=== PATIENT | male | born 1970 | race Two or more races ===

== ENCOUNTER → 2016-09-17 | Outpatient (CLI) | payer OTHER ==
[2016-09-17 07:46] LABS: BASO % 0.6 % (0.0-1.0); EOS # 0.2 K/mm3 (0.0-0.50); EOS % 4.1 % (0.0-3.0); LARGE UNSTAINED CELL # 0.2 K/mm3 (0.0-0.4); LARGE UNSTAINED CELL % 2.7 % (0.0-4.0); LYMPH # 2.4 K/mm3 (1.5-4.5); LYMPH % 39.8 % (24.0-44.0); MEAN CORPUSCULAR HEMOGLOBIN 30.4 pg (27.0-33.0); MEAN CORPUSCULAR HGB CONC 34.4 g/dl (32.0-36.5); MEAN CORPUSCULAR VOLUME 88.2 fl (80.0-96.0); MONO # 0.4 K/mm3 (0.0-0.8); MONO % 6.3 % (0.0-5.0); NEUTROPHILS # 2.8 K/mm3 (1.8-7.7); NEUTROPHILS % 46.7 % (36.0-66.0); PLATELET COUNT, AUTOMATED 261 k/mm3 (150-450); RED CELL DISTRIBUTION WIDTH 11.9 % (11.5-14.5); WHITE BLOOD COUNT 6.1 K/mm3 (4.0-10.0)
[2016-09-17 08:13] LABS: ALBUMIN/GLOBULIN RATIO 1.14 (1.00-1.93); ALKALINE PHOSPHATASE 79 U/L (45-117); ALT/SGPT 50 U/L (12-78); ANION GAP 7 MEQ/L (8-16); AST/SGOT 23 U/L (15-37); BILIRUBIN,TOTAL 0.7 MG/DL (0.2-1.0); BLOOD UREA NITROGEN 15 MG/DL (7-18); CALCIUM LEVEL 8.5 MG/DL (8.5-10.1); CARBON DIOXIDE LEVEL 28 MEQ/L (21-32); CHLORIDE LEVEL 105 MEQ/L (98-107); CHOLESTEROL LEVEL 217 MG/DL (<200); CREATININE FOR GFR 1.06 MG/DL (0.70-1.30); GLOMERULAR FILTRATION RATE > 60.0 (>60); GLUCOSE, FASTING 143 MG/DL (70-105); POTASSIUM SERUM 4.3 MEQ/L (3.5-5.1); SODIUM LEVEL 140 MEQ/L (136-145); TOTAL PROTEIN 7.5 GM/DL (6.4-8.2); TRIGLYCERIDES LEVEL 200 MG/DL (<150)
== END ==
LOC: M LAB 06:59
PROVIDERS: ATTEND Nurse Practitioner Family
DX: Z00.00 Encounter for general adult medical examination without abnormal findings (principal); Z83.3 Family history of diabetes mellitus; Z13.220 Encounter for screening for lipoid disorders

== ENCOUNTER → 2017-01-07 | Outpatient (CLI) | payer OTHER ==
[2017-01-07 07:51] LABS: ANION GAP 4 MEQ/L (8-16); BLOOD UREA NITROGEN 11 MG/DL (7-18); CALCIUM LEVEL 8.9 MG/DL (8.5-10.1); CARBON DIOXIDE LEVEL 27 MEQ/L (21-32); CHLORIDE LEVEL 107 MEQ/L (98-107); CREATININE FOR GFR 0.97 MG/DL (0.70-1.30); GLOMERULAR FILTRATION RATE > 60.0 (>60); GLUCOSE, FASTING 119 MG/DL (70-105); POTASSIUM SERUM 4.3 MEQ/L (3.5-5.1); SODIUM LEVEL 138 MEQ/L (136-145)
== END ==
LOC: M LAB 06:53
PROVIDERS: ATTEND Nurse Practitioner Family
DX: R73.01 Impaired fasting glucose (principal)

== ENCOUNTER → 2017-08-27 | Outpatient (CLI) | payer OTHER ==
[2017-08-27 08:36] LABS: ALBUMIN 4.1 GM/DL (3.2-5.2); ALBUMIN/GLOBULIN RATIO 1.17 (1.00-1.93); ALKALINE PHOSPHATASE 87 U/L (45-117); ALT/SGPT 38 U/L (12-78); ANION GAP 2 MEQ/L (8-16); AST/SGOT 19 U/L (7-37); BILIRUBIN,TOTAL 0.6 MG/DL (0.2-1.0); BLOOD UREA NITROGEN 14 MG/DL (7-18); CALCIUM LEVEL 9.3 MG/DL (8.5-10.1); CARBON DIOXIDE LEVEL 31 MEQ/L (21-32); CHLORIDE LEVEL 106 MEQ/L (98-107); GLOMERULAR FILTRATION RATE > 60.0 (>60); GLUCOSE, FASTING 118 MG/DL (70-100); POTASSIUM SERUM 5.1 MEQ/L (3.5-5.1); SODIUM LEVEL 139 MEQ/L (136-145); TOTAL PROTEIN 7.6 GM/DL (6.4-8.2)
[2017-08-27 09:11] LABS: ESTIMATED AVERAGE GLUCOSE 137 MG/DL (60-110); HEMOGLOBIN A1c 6.4 %
== END ==
LOC: M LAB 07:09
DX: R73.03 Prediabetes (principal)
CPT/HCPCS: 80053

== ENCOUNTER → 2017-10-22 | Outpatient (CLI) | payer OTHER ==
[2017-10-22 08:31] LABS: ALBUMIN 4.5 GM/DL (3.2-5.2); ALBUMIN/GLOBULIN RATIO 1.25 (1.00-1.93); ALKALINE PHOSPHATASE 76 U/L (45-117); ALT/SGPT 37 U/L (12-78); ANION GAP 5 MEQ/L (8-16); AST/SGOT 21 U/L (7-37); BILIRUBIN,TOTAL 0.6 MG/DL (0.2-1.0); BLOOD UREA NITROGEN 19 MG/DL (7-18); CALCIUM LEVEL 8.9 MG/DL (8.5-10.1); CARBON DIOXIDE LEVEL 30 MEQ/L (21-32); CHLORIDE LEVEL 105 MEQ/L (98-107); CHOLESTEROL LEVEL 225 MG/DL (<200); CREATININE FOR GFR 1.11 MG/DL (0.70-1.30); GLOMERULAR FILTRATION RATE > 60.0 (>60); GLUCOSE, FASTING 110 MG/DL (70-100); HDL CHOLESTEROL 45 MG/DL (>40); LDL CHOLESTEROL 155.8 MG/DL (<100); NON-HDL-C 180 MG/DL; POTASSIUM SERUM 4.7 MEQ/L (3.5-5.1); SODIUM LEVEL 140 MEQ/L (136-145); TOTAL PROTEIN 8.1 GM/DL (6.4-8.2); TRIGLYCERIDES LEVEL 121 MG/DL (<150)
[2017-10-22 08:40] LABS: MALB URINE SIEMENS 18.4 MG/L
== END ==
LOC: M LAB 06:52
DX: I10 Essential (primary) hypertension (principal)

== ENCOUNTER → 2018-11-05 | Outpatient (REF) | payer OTHER | LOC: M SFHCPLAZ 08:04 | PROVIDERS: ATTEND Nurse Practitioner Family | DX: Z53.9 Procedure and treatment not carried out, unspecified reason (principal); Z00.00 Encounter for general adult medical examination without abnormal findings; R73.01 Impaired fasting glucose; I10 Essential (primary) hypertension; E78.5 Hyperlipidemia, unspecified ==

== ENCOUNTER → 2020-07-26 | Outpatient (CLI) | payer SELFPAY | LOC: M LABSMTC 12:54 | PROVIDERS: ATTEND Pediatrics | DX: Z11.59 Encounter for screening for other viral diseases (principal) ==

== ENCOUNTER → 2021-08-20 | Outpatient (REF) | payer OTHER ==
[2021-08-20 10:52] LABS: SEMEN APPEARANCE OPAQUE (OPAQUE); SEMEN VISCOSITY LIQUID (LIQUID); SEMEN VOLUME 2.6 ml (2.0-5.0)
[2021-08-20 10:53] LABS: WBC CONCENTRATION <=1 M/ml (<=1 M/ml)
== END ==
LOC: M LAB REF 10:17
PROVIDERS: ATTEND Preventive Medicine Undersea and Hyperbaric Medicine
DX: Z98.52 Vasectomy status (principal)

== ENCOUNTER 2023-01-12 17:22 | Inpatient (IN) | payer OTHER ==
[~2023-01-12] VITALS: Ht 175.3 cm; Wt 82.3 kg
[2023-01-12] MEDS ORDERED: LOSA50TA28 PO (17:34)
[2023-01-12] MEDS ORDERED: ISOVUE-370 76% 100ML VIAL As Ordered ONE (17:54)
[2023-01-12 18:00] VITALS: BP 174/94; TEMP 97.7; O2SAT 99
[2023-01-12 18:10] LABS: BASO # 0.1 10^3/uL (0.0-0.2); BASO % 0.6 % (0.0-1.0); EOS # 0.3 10^3/uL (0.0-0.5); EOS % 3.3 % (0.0-3.0); HEMATOCRIT 44.3 % (42.0-52.0); HEMOGLOBIN 14.9 g/dl (13.5-17.5); MEAN CORPUSCULAR HEMOGLOBIN 30.3 pg (27.0-33.0); MEAN CORPUSCULAR HGB CONC 33.6 g/dl (32.0-36.5); MONO # 0.8 10^3/uL (0.0-0.8); MONO % 8.3 % (2.0-8.0); NEUTROPHILS % 54.6 % (36.0-66.0); PLATELET COUNT, AUTOMATED 282 10^3/uL (150-450); RED BLOOD COUNT 4.92 10^6/uL (4.30-6.10); WHITE BLOOD COUNT 9.1 10^3/uL (4.0-10.0)
[2023-01-12 18:39] LABS: CK-MB VALUE MASS < 1.0 NG/ML (<3.6)
[2023-01-12 18:40] LABS: CPK CREATINE PHOSPHOKINASE 98 U/L (46-171); MB/CK RELATIVE INDEX 1.02 (< OR =4)
[2023-01-12 18:48] LABS: RSV AMPLIFICATION NEGATIVE (NEGATIVE)
[2023-01-12 19:00] VITALS: BP 145/83
[2023-01-12] MEDS ORDERED: CLOPIDOGREL 75 MG TAB PO ONE (19:00)
[2023-01-12] MEDS ORDERED: HOME MED LIST COMPLETE! XX SCH (19:30)
[2023-01-12] MEDS ORDERED: DEXTROSE 50% 50ML SYRINGE IV PRN (19:30)
[2023-01-12] MEDS ORDERED: GLUCAGON INJ 1MG VIAL SC PRN (19:30)
[2023-01-12] MEDS ORDERED: GLUCOSE 4GM CHEW TABLET PO PRN (19:30)
[2023-01-12 21:46] VITALS: BP 176/86; TEMP 97.5; O2SAT 98
[2023-01-12] MEDS: INSULIN LISPRO (NovoLOG) PER UNIT SC SCH (22:15)
[2023-01-13] VITALS (18 sets, daily range): BP systolic 116–176; BP diastolic 70–97; TEMP 96.9–98.6; O2SAT 95–100
[2023-01-13 05:14] LABS: ALBUMIN 3.6 G/DL (3.2-5.2); ALKALINE PHOSPHATASE 91 U/L (46-116); ALT/SGPT 25 U/L (7.0-40); AST/SGOT 10 U/L (<34); BILIRUBIN,TOTAL 0.7 MG/DL (0.3-1.2); BLOOD UREA NITROGEN 13 MG/DL (9-23); CALCIUM LEVEL 8.3 MG/DL (8.5-10.1); CARBON DIOXIDE LEVEL 25 MMOL/L (20-31); CHLORIDE LEVEL 106 MMOL/L (98-107); CHOLESTEROL LEVEL 182 MG/DL (<200); CHOLESTEROL RISK RATIO 4.81 (<5); CREATININE FOR GFR 0.73 MG/DL (0.70-1.30); GLOMERULAR FILTRATION RATE > 60.0 (>56); GLUCOSE, FASTING 277 MG/DL (60-100); HDL CHOLESTEROL 37.8 MG/DL (>40); LDL CHOLESTEROL 114.2 MG/DL (<100); NON-HDL-C 144.2 MG/DL; POTASSIUM SERUM 3.9 MMOL/L (3.5-5.1); SODIUM LEVEL 140 MMOL/L (136-145); TOTAL PROTEIN 6.1 G/DL (5.7-8.2); TRIGLYCERIDES LEVEL 150 MG/DL (<150)
[2023-01-13] MEDS: HEPARIN SOD (PORCINE) 5000UNITS/ML 1ML VIAL/SYRINGE SC SCH ×3 (06:13→21:55)
[2023-01-13] MEDS: CLOPIDOGREL 75 MG TAB PO SCH (08:06)
[2023-01-13] MEDS: INSULIN LISPRO (NovoLOG) PER UNIT SC SCH ×4 (08:06→21:00)
[2023-01-13] MEDS ORDERED: ASPIRIN 81MG CHEW TABLET PO SCH (09:00)
[2023-01-13] MEDS ORDERED: NS 1,000 ML IV ONE (12:05)
[2023-01-13] MEDS ORDERED: NS 1,000 ML IV SCH (12:10)
[2023-01-13 12:20] LABS: C REACTIVE PROTEIN QUANTITATIV < 0.40 MG/DL (<1.0)
[2023-01-13 12:21] LABS: RHEUMATOID FACTOR QUANT < 3.5 IU/ML (<14)
[2023-01-13] MEDS: NS 1,000 ML IV SCH ×2 (15:18→21:55)
[2023-01-13] MEDS: ATORVASTATIN 20 MG TAB PO SCH (21:54)
[2023-01-14] VITALS (94 sets, daily range): BP systolic 128–171; BP diastolic 71–105; TEMP 97.7–98.3; O2SAT 86–99
[2023-01-14] MEDS: PHENYLEPHRINE HCL INJ 50 MG in D5W 495 ML IV SCH (01:35)
[2023-01-14] MEDS: NS 1,000 ML IV SCH ×4 (04:55→22:10)
[2023-01-14 05:51] LABS: HEMATOCRIT 39.8 % (42.0-52.0); HEMOGLOBIN 13.8 g/dl (13.5-17.5); MEAN CORPUSCULAR HEMOGLOBIN 30.6 pg (27.0-33.0); MEAN CORPUSCULAR HGB CONC 34.7 g/dl (32.0-36.5); MEAN CORPUSCULAR VOLUME 88.2 fl (80.0-96.0); PLATELET COUNT, AUTOMATED 265 10^3/uL (150-450); RED BLOOD COUNT 4.51 10^6/uL (4.30-6.10); WHITE BLOOD COUNT 8.7 10^3/uL (4.0-10.0)
[2023-01-14 06:15] LABS: BLOOD UREA NITROGEN 8 MG/DL (9-23); CALCIUM LEVEL 7.9 MG/DL (8.5-10.1); CARBON DIOXIDE LEVEL 24 MMOL/L (20-31); CHLORIDE LEVEL 110 MMOL/L (98-107); CREATININE FOR GFR 0.74 MG/DL (0.70-1.30); GLOMERULAR FILTRATION RATE > 60.0 (>56); GLUCOSE, FASTING 231 MG/DL (60-100); MAGNESIUM LEVEL 1.7 MG/DL (1.8-2.4); PHOSPHORUS LEVEL 2.8 MG/DL (2.5-4.9); POTASSIUM SERUM 3.9 MMOL/L (3.5-5.1); SODIUM LEVEL 140 MMOL/L (136-145)
[2023-01-14] MEDS: HEPARIN SOD (PORCINE) 5000UNITS/ML 1ML VIAL/SYRINGE SC SCH ×3 (06:24→21:34)
[2023-01-14] MEDS ORDERED: MAG SULF 1GM/100ML (MAG RUN) 1 GM in IV 1 EA IV ONE (08:00)
[2023-01-14] MEDS: CLOPIDOGREL 75 MG TAB PO SCH (08:45)
[2023-01-14] MEDS: INSULIN LISPRO (NovoLOG) PER UNIT SC SCH ×4 (08:46→21:00)
[2023-01-14] MEDS: LEVEMIR (INSULIN DETEMIR) 1 UNITS/0.01ML SC SCH (08:47)
[2023-01-14] MEDS ORDERED: ASPIRIN 81MG ENTERIC TABLET PO SCH (09:00)
[2023-01-14] MEDS: ATORVASTATIN 20 MG TAB PO SCH (20:15)
[2023-01-15] VITALS (63 sets, daily range): BP systolic 126–184; BP diastolic 65–109; TEMP 97.4–98.7; O2SAT 95–98
[2023-01-15] MEDS: PHENYLEPHRINE HCL INJ 50 MG in D5W 495 ML IV SCH (02:05)
[2023-01-15] MEDS: NS 1,000 ML IV SCH ×2 (03:48→16:21)
[2023-01-15 04:26] LABS: BASO # 0.1 10^3/uL (0.0-0.2); BASO % 0.6 % (0.0-1.0); EOS # 0.3 10^3/uL (0.0-0.5); EOS % 3.2 % (0.0-3.0); HEMOGLOBIN 12.9 g/dl (13.5-17.5); LYMPH # 3.3 10^3/uL (1.5-5.0); LYMPH % 36.6 % (24.0-44.0); MEAN CORPUSCULAR HEMOGLOBIN 30.3 pg (27.0-33.0); MEAN CORPUSCULAR HGB CONC 33.9 g/dl (32.0-36.5); MEAN CORPUSCULAR VOLUME 89.2 fl (80.0-96.0); MONO # 0.8 10^3/uL (0.0-0.8); MONO % 8.5 % (2.0-8.0); NEUTROPHILS # 4.6 10^3/uL (1.5-8.5); PLATELET COUNT, AUTOMATED 241 10^3/uL (150-450); RED BLOOD COUNT 4.26 10^6/uL (4.30-6.10)
[2023-01-15 05:13] LABS: CK-MB VALUE MASS < 1.0 NG/ML (<3.6)
[2023-01-15 05:20] LABS: ALKALINE PHOSPHATASE 69 U/L (46-116); ALT/SGPT 33 U/L (7.0-40); AST/SGOT 24 U/L (<34); BILIRUBIN,TOTAL 0.7 MG/DL (0.3-1.2); BLOOD UREA NITROGEN 9 MG/DL (9-23); CALCIUM LEVEL 7.5 MG/DL (8.5-10.1); CARBON DIOXIDE LEVEL 22 MMOL/L (20-31); CHLORIDE LEVEL 110 MMOL/L (98-107); CPK CREATINE PHOSPHOKINASE 60 U/L (46-171); CREATININE FOR GFR 0.73 MG/DL (0.70-1.30); GLOMERULAR FILTRATION RATE > 60.0 (>56); GLUCOSE, FASTING 188 MG/DL (60-100); MAGNESIUM LEVEL 1.8 MG/DL (1.8-2.4); MB/CK RELATIVE INDEX 1.66 (< OR =4); PHOSPHORUS LEVEL 3.3 MG/DL (2.5-4.9); POTASSIUM SERUM 3.6 MMOL/L (3.5-5.1); SODIUM LEVEL 141 MMOL/L (136-145); TOTAL PROTEIN 5.4 G/DL (5.7-8.2)
[2023-01-15] MEDS: HEPARIN SOD (PORCINE) 5000UNITS/ML 1ML VIAL/SYRINGE SC SCH ×3 (06:08→21:41)
[2023-01-15] MEDS: LEVEMIR (INSULIN DETEMIR) 1 UNITS/0.01ML SC SCH (08:06)
[2023-01-15] MEDS: CLOPIDOGREL 75 MG TAB PO SCH (08:06)
[2023-01-15] MEDS: INSULIN LISPRO (NovoLOG) PER UNIT SC SCH ×4 (08:07→20:26)
[2023-01-15] MEDS: ATORVASTATIN 20 MG TAB PO SCH (20:27)
[2023-01-16] VITALS (29 sets, daily range): BP systolic 117–177; BP diastolic 57–99; TEMP 97.1–98.3; O2SAT 95–98
[2023-01-16] MEDS: PHENYLEPHRINE HCL INJ 50 MG in D5W 495 ML IV SCH (02:39)
[2023-01-16 04:32] LABS: BASO % 0.5 % (0.0-1.0); EOS # 0.3 10^3/uL (0.0-0.5); EOS % 3.1 % (0.0-3.0); HEMATOCRIT 37.1 % (42.0-52.0); HEMOGLOBIN 12.9 g/dl (13.5-17.5); LYMPH # 3.3 10^3/uL (1.5-5.0); LYMPH % 37.6 % (24.0-44.0); MEAN CORPUSCULAR HEMOGLOBIN 30.6 pg (27.0-33.0); MEAN CORPUSCULAR HGB CONC 34.8 g/dl (32.0-36.5); MEAN CORPUSCULAR VOLUME 88.1 fl (80.0-96.0); MONO # 0.9 10^3/uL (0.0-0.8); MONO % 10.3 % (2.0-8.0); NEUTROPHILS # 4.3 10^3/uL (1.5-8.5); NEUTROPHILS % 48.4 % (36.0-66.0); PLATELET COUNT, AUTOMATED 253 10^3/uL (150-450); RED BLOOD COUNT 4.21 10^6/uL (4.30-6.10); WHITE BLOOD COUNT 8.8 10^3/uL (4.0-10.0)
[2023-01-16 04:52] LABS: ALKALINE PHOSPHATASE 83 U/L (46-116); ALT/SGPT 50 U/L (7.0-40); AST/SGOT 36 U/L (<34); BILIRUBIN,TOTAL 0.8 MG/DL (0.3-1.2); BLOOD UREA NITROGEN 8 MG/DL (9-23); CALCIUM LEVEL 8.7 MG/DL (8.5-10.1); CARBON DIOXIDE LEVEL 23 MMOL/L (20-31); CHLORIDE LEVEL 110 MMOL/L (98-107); GLOMERULAR FILTRATION RATE > 60.0 (>56); GLUCOSE, FASTING 157 MG/DL (60-100); MAGNESIUM LEVEL 1.7 MG/DL (1.8-2.4); POTASSIUM SERUM 3.8 MMOL/L (3.5-5.1); SODIUM LEVEL 140 MMOL/L (136-145); TOTAL PROTEIN 5.6 G/DL (5.7-8.2)
[2023-01-16] MEDS: NS 1,000 ML IV SCH (05:20)
[2023-01-16] MEDS: HEPARIN SOD (PORCINE) 5000UNITS/ML 1ML VIAL/SYRINGE SC SCH ×3 (05:20→21:34)
[2023-01-16] MEDS ORDERED: MAG SULF 1GM/100ML (MAG RUN) 1 GM in IV 1 EA IV ONE (06:00)
[2023-01-16] MEDS: CLOPIDOGREL 75 MG TAB PO SCH (08:06)
[2023-01-16] MEDS: INSULIN LISPRO (NovoLOG) PER UNIT SC SCH ×4 (08:07→20:48)
[2023-01-16] MEDS: LEVEMIR (INSULIN DETEMIR) 1 UNITS/0.01ML SC SCH (08:08)
[2023-01-16] MEDS ORDERED: LEVEMIR (INSULIN DETEMIR) 1 UNITS/0.01ML SC SCH (09:00)
[2023-01-16] MEDS: ATORVASTATIN 20 MG TAB PO SCH (20:28)
[2023-01-16] MEDS ORDERED: LOSARTAN 25 MG TAB PO SCH (21:00)
[2023-01-17] VITALS: BP 123/78; TEMP 98.3; O2SAT 98
[2023-01-17 04:00] VITALS: BP 126/61; TEMP 98.2; O2SAT 96
[2023-01-17 04:56] LABS: BLOOD UREA NITROGEN 8 MG/DL (9-23); CALCIUM LEVEL 8.8 MG/DL (8.5-10.1); CARBON DIOXIDE LEVEL 28 MMOL/L (20-31); CHLORIDE LEVEL 108 MMOL/L (98-107); CREATININE FOR GFR 0.82 MG/DL (0.70-1.30); GLOMERULAR FILTRATION RATE > 60.0 (>56); GLUCOSE, FASTING 119 MG/DL (60-100); MAGNESIUM LEVEL 1.9 MG/DL (1.8-2.4); POTASSIUM SERUM 3.6 MMOL/L (3.5-5.1); SODIUM LEVEL 143 MMOL/L (136-145)
[2023-01-17] MEDS: HEPARIN SOD (PORCINE) 5000UNITS/ML 1ML VIAL/SYRINGE SC SCH ×3 (06:05→21:18)
[2023-01-17 08:00] VITALS: BP 144/77; TEMP 97.9; O2SAT 97
[2023-01-17] MEDS: LEVEMIR (INSULIN DETEMIR) 1 UNITS/0.01ML SC SCH (08:37)
[2023-01-17] MEDS: INSULIN LISPRO (NovoLOG) PER UNIT SC SCH ×4 (08:37→21:00)
[2023-01-17] MEDS: CLOPIDOGREL 75 MG TAB PO SCH (08:37)
[2023-01-17 09:26] LABS: DRVV SCREEN 35.5 SEC
[2023-01-17 13:30] VITALS: BP 138/80; TEMP 98.6; O2SAT 97
[2023-01-17 20:00] VITALS: BP 135/78; TEMP 98.8; O2SAT 97
[2023-01-17] MEDS: ATORVASTATIN 20 MG TAB PO SCH (21:18)
[2023-01-18 02:00] VITALS: BP 118/62; TEMP 98.6; O2SAT 96
[2023-01-18] MEDS: HEPARIN SOD (PORCINE) 5000UNITS/ML 1ML VIAL/SYRINGE SC SCH ×3 (05:19→22:37)
[2023-01-18 05:24] VITALS: BP 141/78; TEMP 97.9; O2SAT 97
[2023-01-18] MEDS: INSULIN LISPRO (NovoLOG) PER UNIT SC SCH ×4 (09:32→21:00)
[2023-01-18] MEDS: CLOPIDOGREL 75 MG TAB PO SCH (09:32)
[2023-01-18] MEDS: LEVEMIR (INSULIN DETEMIR) 1 UNITS/0.01ML SC SCH (09:33)
[2023-01-18 10:00] VITALS: BP 120/78; TEMP 98.5; O2SAT 97
[2023-01-18 14:00] VITALS: BP 127/68; TEMP 99; O2SAT 98
[2023-01-18 18:00] VITALS: BP 140/83; TEMP 99.1; O2SAT 99
[2023-01-18 21:03] VITALS: BP 139/80; TEMP 98.8; O2SAT 98
[2023-01-18] MEDS: ATORVASTATIN 20 MG TAB PO SCH (22:35)
[2023-01-19 02:00] VITALS: BP 108/62; TEMP 98.4; O2SAT 99
[2023-01-19] MEDS: HEPARIN SOD (PORCINE) 5000UNITS/ML 1ML VIAL/SYRINGE SC SCH ×3 (05:50→22:30)
[2023-01-19 06:00] VITALS: BP 121/75; TEMP 97.9; O2SAT 98
[2023-01-19] MEDS: INSULIN LISPRO (NovoLOG) PER UNIT SC SCH ×3 (07:30→18:34)
[2023-01-19] MEDS: CLOPIDOGREL 75 MG TAB PO SCH (09:35)
[2023-01-19] MEDS: LEVEMIR (INSULIN DETEMIR) 1 UNITS/0.01ML SC SCH (09:36)
[2023-01-19 10:00] VITALS: BP 122/76; TEMP 99; O2SAT 98
[2023-01-19 14:00] VITALS: BP 142/73; TEMP 98.8; O2SAT 96
[2023-01-19 18:00] VITALS: BP 138/70; TEMP 98.9; O2SAT 98
[2023-01-19 20:12] VITALS: BP 135/81; TEMP 98.6; O2SAT 98
[2023-01-19] MEDS: ATORVASTATIN 20 MG TAB PO SCH (22:29)
[2023-01-20 01:55] VITALS: BP 110/66; TEMP 98.8; O2SAT 99
[2023-01-20 05:42] VITALS: BP 110/65; TEMP 98.1; O2SAT 95
[2023-01-20] MEDS: HEPARIN SOD (PORCINE) 5000UNITS/ML 1ML VIAL/SYRINGE SC SCH ×3 (05:57→21:00)
[2023-01-20] MEDS: LEVEMIR (INSULIN DETEMIR) 1 UNITS/0.01ML SC SCH (08:01)
[2023-01-20] MEDS: INSULIN LISPRO (NovoLOG) PER UNIT SC SCH ×2 (08:02→12:02)
[2023-01-20] MEDS: CLOPIDOGREL 75 MG TAB PO SCH (08:02)
[2023-01-20 13:07] LABS: ANCA-ATYPICAL <1:20 titer (Neg:<1:20); ANTI THROMBIN 3 ANTIGEN IMMUNO 96 % (72-124); ANTI THROMBIN 3 FUNCT ACTIVITY 121 % (75-135); ANTINUCLEAR ANTIBODIES DIRECT Negative (Negative); CARDIOLIPIN IGA ANTIBODY <9 APL U/mL (0-11); CARDIOLIPIN IGG ANTIBODY <9 GPL U/mL (0-14); CARDIOLIPIN IGM ANTIBODY <9 MPL U/mL (0-12); CYTOPLASMIC NEUTROP AB ANCA-C <1:20 titer (Neg:<1:20); F8 ACTIVITY FOR F8 PANEL 125 % (56-140); F8 ACTIVITY vWB FOR F8 PANEL 121 % (50-200); F8 ANTIGEN FOR F8 PANEL 158 % (50-200); PERINUCLEAR AB ANCA-P <1:20 titer (Neg:<1:20); PROTEIN C ANTIGEN 131 % (60-150); PROTEIN S ANTIGEN FREE 112 % (61-136); PROTEIN S ANTIGEN TOTAL 126 % (60-150); SJOGREN'S ANTI SS-A <0.2 AI (0.0-0.9); SJOGREN'S ANTI SS-B <0.2 AI (0.0-0.9)
[2023-01-20 14:00] VITALS: BP 123/70; TEMP 98.8; O2SAT 96
[2023-01-20] MEDS: ATORVASTATIN 20 MG TAB PO SCH (20:58)
[2023-01-20 21:00] VITALS: BP 131/72; TEMP 98.6; O2SAT 98
[2023-01-21] MEDS: HEPARIN SOD (PORCINE) 5000UNITS/ML 1ML VIAL/SYRINGE SC SCH ×3 (05:19→22:11)
[2023-01-21 06:00] VITALS: BP 120/71; TEMP 98.4; O2SAT 97
[2023-01-21] MEDS: LEVEMIR (INSULIN DETEMIR) 1 UNITS/0.01ML SC SCH (09:30)
[2023-01-21] MEDS: CLOPIDOGREL 75 MG TAB PO SCH (09:30)
[2023-01-21 14:00] VITALS: BP 137/76; TEMP 98.6; O2SAT 96
[2023-01-21] MEDS: ATORVASTATIN 20 MG TAB PO SCH (20:10)
[2023-01-21] MEDS: glipiZIDE *2.5MG* 1/2 TABLET PO SCH (20:11)
[2023-01-21 20:40] VITALS: BP 134/76; TEMP 98.4; O2SAT 98
[2023-01-22] MEDS: HEPARIN SOD (PORCINE) 5000UNITS/ML 1ML VIAL/SYRINGE SC SCH (05:32)
[2023-01-22 05:43] VITALS: BP 126/72; TEMP 98.6; O2SAT 98
[2023-01-22] MEDS: CLOPIDOGREL 75 MG TAB PO SCH (07:41)
[2023-01-22] MEDS: LEVEMIR (INSULIN DETEMIR) 1 UNITS/0.01ML SC SCH (07:41)
[2023-01-22] MEDS: glipiZIDE *2.5MG* 1/2 TABLET PO SCH (07:41)
[2023-01-22] MEDS ORDERED: INSUDET SC (08:28)
[2023-01-22] MEDS ORDERED: ATOR1TAB21 PO (08:28)
[2023-01-22] MEDS ORDERED: GLIP5TAB8 PO (08:28)
[2023-01-22] MEDS ORDERED: CLOP75TA2 PO (08:28)
[2023-01-23] MEDS ORDERED: LEVEMIR (INSULIN DETEMIR) 1 UNITS/0.01ML SC SCH (09:00)
== END 2023-01-22 11:06 | DRG 45 ==
LOC: M ED 17:22 → M ED INP 19:26 → M PCU 21:44 → M ICU 01-13 20:05 → M MSPAV 01-17 13:23
PROVIDERS: ADMIT Internal Medicine; ATTEND Internal Medicine Nephrology
DX: I63.9 Cerebral infarction, unspecified (principal); E11.65 Type 2 diabetes mellitus with hyperglycemia; I10 Essential (primary) hypertension; D68.2 Hereditary deficiency of other clotting factors; E78.5 Hyperlipidemia, unspecified; G47.33 Obstructive sleep apnea (adult) (pediatric); I69.322 Dysarthria following cerebral infarction; I69.391 Dysphagia following cerebral infarction; I69.351 Hemiplegia and hemiparesis following cerebral infarction affecting right dominant side; Z79.82 Long term (current) use of aspirin; Z91.030 Bee allergy status; Z79.4 Long term (current) use of insulin; Z79.899 Other long term (current) drug therapy; Z87.891 Personal history of nicotine dependence

== ENCOUNTER 2023-01-22 11:15 | Inpatient (IN) | payer OTHER ==
[~2023-01-22] VITALS: Ht 175.3 cm; Wt 80.0 kg
[2023-01-22 11:15] VITALS: BP 128/75; TEMP 98.1; O2SAT 100
[~2023-01-22 11:15] MED LIST: ATOR1TAB21 PO; CLOP75TA2 PO; GLIP5TAB8 PO; INSUDET SC; LOSA50TA28 PO
[2023-01-22 14:00] VITALS: BP 134/68; TEMP 97.8; O2SAT 99
[2023-01-22] MEDS ORDERED: GLUCOSE 4GM CHEW TABLET PO PRN (16:05)
[2023-01-22] MEDS ORDERED: ACETAMINOPHEN TAB 650MG DOSE (2X325MG) PO PRN (16:05)
[2023-01-22] MEDS ORDERED: DEXTROSE 50% 50ML SYRINGE IV PRN (16:05)
[2023-01-22] MEDS ORDERED: BISACODYL 10MG SUPP PR PRN (16:05)
[2023-01-22] MEDS ORDERED: GLUCAGON INJ 1MG VIAL SC PRN (16:05)
[2023-01-22] MEDS: glipiZIDE *2.5MG* 1/2 TABLET PO SCH (17:29)
[2023-01-22] MEDS ORDERED: INSULIN LISPRO (NovoLOG) PER UNIT SC SCH ×2 (17:30→21:00)
[2023-01-22 20:45] VITALS: BP 123/73; TEMP 97.8; O2SAT 96
[2023-01-22] MEDS: REMEDY PHYTOPLEX Z-GUARD PASTE 113GM TUBE (FROM STOREROOM PRODUCT) TOP SCH (21:00)
[2023-01-22] MEDS: DOCUSATE SODIUM 100MG CAPSULE PO SCH (21:00)
[2023-01-22] MEDS: SENNA 8.6 MG TAB (SENOKOT) PO SCH (21:00)
[2023-01-22] MEDS: ATORVASTATIN 20 MG TAB PO SCH (21:27)
[2023-01-22] MEDS: HEPARIN SOD (PORCINE) 5000UNITS/ML 1ML VIAL/SYRINGE SC SCH (21:28)
[2023-01-23] MEDS: HEPARIN SOD (PORCINE) 5000UNITS/ML 1ML VIAL/SYRINGE SC SCH ×3 (05:23→21:45)
[2023-01-23 06:00] VITALS: BP 123/77; TEMP 97.6; O2SAT 96
[2023-01-23 06:07] LABS: BASO % 0.7 % (0.0-1.0); EOS # 0.2 10^3/uL (0.0-0.5); EOS % 3.8 % (0.0-3.0); HEMATOCRIT 39.8 % (42.0-52.0); HEMOGLOBIN 13.5 g/dl (13.5-17.5); LYMPH % 35.1 % (24.0-44.0); MEAN CORPUSCULAR HEMOGLOBIN 30.6 pg (27.0-33.0); MEAN CORPUSCULAR HGB CONC 33.9 g/dl (32.0-36.5); MEAN CORPUSCULAR VOLUME 90.2 fl (80.0-96.0); MONO # 0.6 10^3/uL (0.0-0.8); MONO % 10.5 % (2.0-8.0); NEUTROPHILS # 2.9 10^3/uL (1.5-8.5); NEUTROPHILS % 49.7 % (36.0-66.0); PLATELET COUNT, AUTOMATED 235 10^3/uL (150-450); RED BLOOD COUNT 4.41 10^6/uL (4.30-6.10); WHITE BLOOD COUNT 5.8 10^3/uL (4.0-10.0)
[2023-01-23 06:36] LABS: ALBUMIN 3.3 G/DL (3.2-5.2); ALKALINE PHOSPHATASE 69 U/L (46-116); ALT/SGPT 78 U/L (7.0-40); AST/SGOT 39 U/L (<34); BILIRUBIN,TOTAL 0.5 MG/DL (0.3-1.2); BLOOD UREA NITROGEN 14 MG/DL (9-23); CALCIUM LEVEL 9.4 MG/DL (8.5-10.1); CARBON DIOXIDE LEVEL 25 MMOL/L (20-31); CHLORIDE LEVEL 108 MMOL/L (98-107); CREATININE FOR GFR 0.85 MG/DL (0.70-1.30); GLOMERULAR FILTRATION RATE > 60.0 (>56); GLUCOSE, FASTING 120 MG/DL (60-100); POTASSIUM SERUM 4.5 MMOL/L (3.5-5.1); SODIUM LEVEL 141 MMOL/L (136-145); TOTAL PROTEIN 6.2 G/DL (5.7-8.2)
[2023-01-23] MEDS: PANTOPRAZOLE 40MG TAB (PROTONIX) PO SCH (08:43)
[2023-01-23] MEDS: glipiZIDE *2.5MG* 1/2 TABLET PO SCH ×2 (08:43→18:01)
[2023-01-23] MEDS: CLOPIDOGREL 75 MG TAB PO SCH (08:43)
[2023-01-23] MEDS: REMEDY PHYTOPLEX Z-GUARD PASTE 113GM TUBE (FROM STOREROOM PRODUCT) TOP SCH ×3 (08:44→21:00)
[2023-01-23] MEDS: DOCUSATE SODIUM 100MG CAPSULE PO SCH ×2 (08:44→21:00)
[2023-01-23] MEDS ORDERED: LEVEMIR (INSULIN DETEMIR) 1 UNITS/0.01ML SC SCH (09:00)
[2023-01-23 20:00] VITALS: BP 137/76; TEMP 98.6; O2SAT 98
[2023-01-23] MEDS: SENNA 8.6 MG TAB (SENOKOT) PO SCH (21:00)
[2023-01-23] MEDS: ATORVASTATIN 20 MG TAB PO SCH (21:44)
[2023-01-24] MEDS: HEPARIN SOD (PORCINE) 5000UNITS/ML 1ML VIAL/SYRINGE SC SCH ×3 (05:44→21:31)
[2023-01-24 05:56] LABS: BASO % 0.7 % (0.0-1.0); EOS # 0.2 10^3/uL (0.0-0.5); EOS % 4.3 % (0.0-3.0); HEMATOCRIT 39.7 % (42.0-52.0); HEMOGLOBIN 13.4 g/dl (13.5-17.5); LYMPH # 1.9 10^3/uL (1.5-5.0); LYMPH % 33.5 % (24.0-44.0); MEAN CORPUSCULAR HEMOGLOBIN 30.9 pg (27.0-33.0); MEAN CORPUSCULAR HGB CONC 33.8 g/dl (32.0-36.5); MEAN CORPUSCULAR VOLUME 91.7 fl (80.0-96.0); MONO # 0.7 10^3/uL (0.0-0.8); MONO % 11.7 % (2.0-8.0); NEUTROPHILS # 2.8 10^3/uL (1.5-8.5); NEUTROPHILS % 49.4 % (36.0-66.0); PLATELET COUNT, AUTOMATED 237 10^3/uL (150-450); RED BLOOD COUNT 4.33 10^6/uL (4.30-6.10); WHITE BLOOD COUNT 5.6 10^3/uL (4.0-10.0)
[2023-01-24 06:00] VITALS: BP 121/77; TEMP 99; O2SAT 97
[2023-01-24 06:19] LABS: BLOOD UREA NITROGEN 13 MG/DL (9-23); CALCIUM LEVEL 8.3 MG/DL (8.5-10.1); CARBON DIOXIDE LEVEL 26 MMOL/L (20-31); CHLORIDE LEVEL 109 MMOL/L (98-107); CREATININE FOR GFR 0.79 MG/DL (0.70-1.30); GLOMERULAR FILTRATION RATE > 60.0 (>56); GLUCOSE, FASTING 115 MG/DL (60-100); POTASSIUM SERUM 4.2 MMOL/L (3.5-5.1); SODIUM LEVEL 143 MMOL/L (136-145)
[2023-01-24] MEDS: DOCUSATE SODIUM 100MG CAPSULE PO SCH ×2 (08:11→21:00)
[2023-01-24] MEDS: glipiZIDE *2.5MG* 1/2 TABLET PO SCH ×2 (08:11→16:55)
[2023-01-24] MEDS: CLOPIDOGREL 75 MG TAB PO SCH (08:11)
[2023-01-24] MEDS: PANTOPRAZOLE 40MG TAB (PROTONIX) PO SCH (08:11)
[2023-01-24] MEDS: ESCITALOPRAM OXALATE 5MG TABLET (LEXAPRO) PO SCH (08:11)
[2023-01-24] MEDS: REMEDY PHYTOPLEX Z-GUARD PASTE 113GM TUBE (FROM STOREROOM PRODUCT) TOP SCH ×3 (08:12→21:00)
[2023-01-24 14:00] VITALS: BP 134/63; TEMP 97.7; O2SAT 98
[2023-01-24 20:00] VITALS: BP 151/72; TEMP 97.8; O2SAT 97
[2023-01-24] MEDS: SENNA 8.6 MG TAB (SENOKOT) PO SCH (21:00)
[2023-01-24] MEDS: ATORVASTATIN 20 MG TAB PO SCH (21:30)
[2023-01-25] MEDS: HEPARIN SOD (PORCINE) 5000UNITS/ML 1ML VIAL/SYRINGE SC SCH ×3 (05:48→21:13)
[2023-01-25 06:00] VITALS: BP 128/76; TEMP 97.7; O2SAT 97
[2023-01-25] MEDS: REMEDY PHYTOPLEX Z-GUARD PASTE 113GM TUBE (FROM STOREROOM PRODUCT) TOP SCH ×3 (08:36→21:00)
[2023-01-25] MEDS: CLOPIDOGREL 75 MG TAB PO SCH (08:36)
[2023-01-25] MEDS: glipiZIDE *2.5MG* 1/2 TABLET PO SCH ×2 (08:36→17:35)
[2023-01-25] MEDS: ESCITALOPRAM OXALATE 5MG TABLET (LEXAPRO) PO SCH (08:36)
[2023-01-25] MEDS: PANTOPRAZOLE 40MG TAB (PROTONIX) PO SCH (08:36)
[2023-01-25] MEDS: DOCUSATE SODIUM 100MG CAPSULE PO SCH ×2 (08:36→21:00)
[2023-01-25 14:00] VITALS: BP 126/66; TEMP 97.7; O2SAT 97
[2023-01-25] MEDS: SENNA 8.6 MG TAB (SENOKOT) PO SCH (21:00)
[2023-01-25 21:04] VITALS: BP 127/69; TEMP 98.5; O2SAT 95
[2023-01-25] MEDS: ATORVASTATIN 20 MG TAB PO SCH (21:13)
[2023-01-26 05:16] VITALS: BP 130/78; TEMP 98.3; O2SAT 96
[2023-01-26] MEDS: HEPARIN SOD (PORCINE) 5000UNITS/ML 1ML VIAL/SYRINGE SC SCH ×3 (05:19→21:40)
[2023-01-26] MEDS: DOCUSATE SODIUM 100MG CAPSULE PO SCH ×2 (09:00→21:00)
[2023-01-26] MEDS: REMEDY PHYTOPLEX Z-GUARD PASTE 113GM TUBE (FROM STOREROOM PRODUCT) TOP SCH ×3 (09:00→21:00)
[2023-01-26] MEDS: CLOPIDOGREL 75 MG TAB PO SCH (09:14)
[2023-01-26] MEDS: PANTOPRAZOLE 40MG TAB (PROTONIX) PO SCH (09:14)
[2023-01-26] MEDS: glipiZIDE *2.5MG* 1/2 TABLET PO SCH ×2 (09:14→17:52)
[2023-01-26] MEDS: ESCITALOPRAM OXALATE 5MG TABLET (LEXAPRO) PO SCH (09:15)
[2023-01-26 14:00] VITALS: BP 150/72; TEMP 98.6; O2SAT 99
[2023-01-26 19:43] VITALS: BP 142/67; TEMP 98; O2SAT 94
[2023-01-26] MEDS: SENNA 8.6 MG TAB (SENOKOT) PO SCH (21:00)
[2023-01-26] MEDS: ATORVASTATIN 20 MG TAB PO SCH (21:41)
[2023-01-27] MEDS: HEPARIN SOD (PORCINE) 5000UNITS/ML 1ML VIAL/SYRINGE SC SCH ×3 (05:40→20:43)
[2023-01-27 05:56] VITALS: BP 147/82; TEMP 97.5; O2SAT 97
[2023-01-27] MEDS: PANTOPRAZOLE 40MG TAB (PROTONIX) PO SCH (08:53)
[2023-01-27] MEDS: ESCITALOPRAM OXALATE 5MG TABLET (LEXAPRO) PO SCH (08:53)
[2023-01-27] MEDS: CLOPIDOGREL 75 MG TAB PO SCH (08:53)
[2023-01-27] MEDS: glipiZIDE *2.5MG* 1/2 TABLET PO SCH ×2 (08:53→17:18)
[2023-01-27] MEDS: REMEDY PHYTOPLEX Z-GUARD PASTE 113GM TUBE (FROM STOREROOM PRODUCT) TOP SCH ×3 (08:54→21:00)
[2023-01-27] MEDS: DOCUSATE SODIUM 100MG CAPSULE PO SCH ×2 (08:54→21:00)
[2023-01-27 09:41] LABS: BASO # 0.1 10^3/uL (0.0-0.2); BASO % 0.8 % (0.0-1.0); EOS # 0.2 10^3/uL (0.0-0.5); EOS % 3.3 % (0.0-3.0); HEMATOCRIT 44.5 % (42.0-52.0); HEMOGLOBIN 14.6 g/dl (13.5-17.5); LYMPH # 1.7 10^3/uL (1.5-5.0); LYMPH % 28.9 % (24.0-44.0); MEAN CORPUSCULAR HEMOGLOBIN 30.5 pg (27.0-33.0); MEAN CORPUSCULAR HGB CONC 32.8 g/dl (32.0-36.5); MEAN CORPUSCULAR VOLUME 93.1 fl (80.0-96.0); MONO # 0.4 10^3/uL (0.0-0.8); MONO % 7.4 % (2.0-8.0); NEUTROPHILS # 3.6 10^3/uL (1.5-8.5); NEUTROPHILS % 59.4 % (36.0-66.0); PLATELET COUNT, AUTOMATED 282 10^3/uL (150-450); RED BLOOD COUNT 4.78 10^6/uL (4.30-6.10)
[2023-01-27 10:27] LABS: BLOOD UREA NITROGEN 11 MG/DL (9-23); CALCIUM LEVEL 9.2 MG/DL (8.5-10.1); CARBON DIOXIDE LEVEL 28 MMOL/L (20-31); CHLORIDE LEVEL 104 MMOL/L (98-107); CREATININE FOR GFR 0.87 MG/DL (0.70-1.30); GLOMERULAR FILTRATION RATE > 60.0 (>56); GLUCOSE, FASTING 143 MG/DL (60-100); POTASSIUM SERUM 3.9 MMOL/L (3.5-5.1); SODIUM LEVEL 139 MMOL/L (136-145)
[2023-01-27] MEDS: amLODIPine 5 MG TAB PO SCH (10:55)
[2023-01-27 14:00] VITALS: BP 137/68; TEMP 97.8; O2SAT 98
[2023-01-27 20:00] VITALS: BP 150/87; TEMP 98.2; O2SAT 96
[2023-01-27] MEDS: ATORVASTATIN 20 MG TAB PO SCH (20:44)
[2023-01-27] MEDS: SENNA 8.6 MG TAB (SENOKOT) PO SCH (21:00)
[2023-01-28] MEDS: HEPARIN SOD (PORCINE) 5000UNITS/ML 1ML VIAL/SYRINGE SC SCH ×3 (05:31→20:38)
[2023-01-28 06:00] VITALS: BP 143/81; TEMP 97.5; O2SAT 99
[2023-01-28] MEDS: ESCITALOPRAM OXALATE 5MG TABLET (LEXAPRO) PO SCH (08:42)
[2023-01-28] MEDS: glipiZIDE *2.5MG* 1/2 TABLET PO SCH ×2 (08:42→17:16)
[2023-01-28] MEDS: amLODIPine 5 MG TAB PO SCH ×2 (08:43→20:39)
[2023-01-28] MEDS: CLOPIDOGREL 75 MG TAB PO SCH (08:43)
[2023-01-28] MEDS: PANTOPRAZOLE 40MG TAB (PROTONIX) PO SCH (08:43)
[2023-01-28] MEDS: REMEDY PHYTOPLEX Z-GUARD PASTE 113GM TUBE (FROM STOREROOM PRODUCT) TOP SCH ×3 (08:43→21:00)
[2023-01-28] MEDS: DOCUSATE SODIUM 100MG CAPSULE PO SCH ×2 (08:43→21:00)
[2023-01-28 14:00] VITALS: BP 152/82; TEMP 97.5; O2SAT 98
[2023-01-28 20:00] VITALS: BP 136/72; TEMP 98; O2SAT 97
[2023-01-28] MEDS: ATORVASTATIN 20 MG TAB PO SCH (20:39)
[2023-01-28] MEDS: SENNA 8.6 MG TAB (SENOKOT) PO SCH (21:00)
[2023-01-29] MEDS: HEPARIN SOD (PORCINE) 5000UNITS/ML 1ML VIAL/SYRINGE SC SCH ×3 (05:23→21:23)
[2023-01-29 06:00] VITALS: BP 128/70; TEMP 97.7; O2SAT 99
[2023-01-29 06:19] LABS: BASO # 0.1 10^3/uL (0.0-0.2); BASO % 0.9 % (0.0-1.0); EOS # 0.3 10^3/uL (0.0-0.5); EOS % 3.7 % (0.0-3.0); HEMATOCRIT 43.6 % (42.0-52.0); HEMOGLOBIN 14.8 g/dl (13.5-17.5); LYMPH % 30.1 % (24.0-44.0); MEAN CORPUSCULAR HEMOGLOBIN 30.8 pg (27.0-33.0); MEAN CORPUSCULAR HGB CONC 33.9 g/dl (32.0-36.5); MEAN CORPUSCULAR VOLUME 90.8 fl (80.0-96.0); MONO # 0.6 10^3/uL (0.0-0.8); MONO % 9.2 % (2.0-8.0); NEUTROPHILS # 3.8 10^3/uL (1.5-8.5); PLATELET COUNT, AUTOMATED 280 10^3/uL (150-450); WHITE BLOOD COUNT 6.7 10^3/uL (4.0-10.0)
[2023-01-29 06:50] LABS: BLOOD UREA NITROGEN 11 MG/DL (9-23); CALCIUM LEVEL 9.1 MG/DL (8.5-10.1); CARBON DIOXIDE LEVEL 28 MMOL/L (20-31); CHLORIDE LEVEL 107 MMOL/L (98-107); CREATININE FOR GFR 0.81 MG/DL (0.70-1.30); GLOMERULAR FILTRATION RATE > 60.0 (>56); GLUCOSE, FASTING 147 MG/DL (60-100); POTASSIUM SERUM 4.2 MMOL/L (3.5-5.1); SODIUM LEVEL 141 MMOL/L (136-145)
[2023-01-29] MEDS: ESCITALOPRAM OXALATE 5MG TABLET (LEXAPRO) PO SCH (08:18)
[2023-01-29] MEDS: DOCUSATE SODIUM 100MG CAPSULE PO SCH ×2 (08:18→21:00)
[2023-01-29] MEDS: PANTOPRAZOLE 40MG TAB (PROTONIX) PO SCH (08:18)
[2023-01-29] MEDS: REMEDY PHYTOPLEX Z-GUARD PASTE 113GM TUBE (FROM STOREROOM PRODUCT) TOP SCH ×3 (08:18→21:00)
[2023-01-29] MEDS: CLOPIDOGREL 75 MG TAB PO SCH (08:18)
[2023-01-29] MEDS: glipiZIDE *2.5MG* 1/2 TABLET PO SCH ×2 (08:18→17:20)
[2023-01-29] MEDS: amLODIPine 5 MG TAB PO SCH ×2 (08:20→21:26)
[2023-01-29 14:00] VITALS: BP 130/80; TEMP 97.5; O2SAT 97
[2023-01-29 20:00] VITALS: BP 152/84; TEMP 98.2; O2SAT 99
[2023-01-29] MEDS: SENNA 8.6 MG TAB (SENOKOT) PO SCH (21:00)
[2023-01-29] MEDS: ATORVASTATIN 20 MG TAB PO SCH (21:24)
[2023-01-30 05:30] VITALS: BP 144/81; TEMP 98; O2SAT 97
[2023-01-30] MEDS: HEPARIN SOD (PORCINE) 5000UNITS/ML 1ML VIAL/SYRINGE SC SCH ×3 (06:04→21:49)
[2023-01-30] MEDS: REMEDY PHYTOPLEX Z-GUARD PASTE 113GM TUBE (FROM STOREROOM PRODUCT) TOP SCH ×3 (09:00→21:00)
[2023-01-30] MEDS: DOCUSATE SODIUM 100MG CAPSULE PO SCH ×2 (09:30→21:49)
[2023-01-30] MEDS: PANTOPRAZOLE 40MG TAB (PROTONIX) PO SCH (09:30)
[2023-01-30] MEDS: ESCITALOPRAM OXALATE 5MG TABLET (LEXAPRO) PO SCH (09:30)
[2023-01-30] MEDS: glipiZIDE *2.5MG* 1/2 TABLET PO SCH ×2 (09:30→17:13)
[2023-01-30] MEDS: CLOPIDOGREL 75 MG TAB PO SCH (09:30)
[2023-01-30] MEDS: amLODIPine 5 MG TAB PO SCH ×2 (09:31→21:49)
[2023-01-30] MEDS ORDERED: AMLO1TAB24 PO (09:40)
[2023-01-30] MEDS ORDERED: COZA1TAB PO (09:40)
[2023-01-30] MEDS ORDERED: CLOP75TA2 PO (09:40)
[2023-01-30] MEDS ORDERED: ATOR1TAB21 PO (09:40)
[2023-01-30] MEDS ORDERED: LEXA5TAB13 PO (09:40)
[2023-01-30] MEDS ORDERED: GLIP5TAB8 PO (09:40)
[2023-01-30 14:00] VITALS: BP 133/76; TEMP 97.9; O2SAT 99
[2023-01-30 20:00] VITALS: BP 159/81; TEMP 96.9; O2SAT 97
[2023-01-30] MEDS ORDERED: LOSARTAN 25 MG TAB PO SCH (21:00)
[2023-01-30] MEDS: ATORVASTATIN 20 MG TAB PO SCH (21:49)
[2023-01-30] MEDS: SENNA 8.6 MG TAB (SENOKOT) PO SCH (21:49)
[2023-01-31] MEDS: HEPARIN SOD (PORCINE) 5000UNITS/ML 1ML VIAL/SYRINGE SC SCH (05:41)
[2023-01-31 06:00] VITALS: BP 136/75; TEMP 98.2; O2SAT 98
[2023-01-31] MEDS: REMEDY PHYTOPLEX Z-GUARD PASTE 113GM TUBE (FROM STOREROOM PRODUCT) TOP SCH (09:00)
[2023-01-31] MEDS: DOCUSATE SODIUM 100MG CAPSULE PO SCH (09:00)
[2023-01-31] MEDS: glipiZIDE *2.5MG* 1/2 TABLET PO SCH (09:10)
[2023-01-31] MEDS: ESCITALOPRAM OXALATE 5MG TABLET (LEXAPRO) PO SCH (09:10)
[2023-01-31 09:11] VITALS: BP 136/75
[2023-01-31] MEDS: PANTOPRAZOLE 40MG TAB (PROTONIX) PO SCH (09:11)
[2023-01-31] MEDS: amLODIPine 5 MG TAB PO SCH (09:11)
[2023-01-31] MEDS: CLOPIDOGREL 75 MG TAB PO SCH (09:11)
== END 2023-01-31 11:00 | disposition home or self-care (01) | DRG 45 ==
LOC: M PM&R 11:15
PROVIDERS: ADMIT Internal Medicine; ATTEND Physical Medicine & Rehabilitation
DX: I63.9 Cerebral infarction, unspecified (principal); I69.322 Dysarthria following cerebral infarction; I69.391 Dysphagia following cerebral infarction; R13.10 Dysphagia, unspecified; I69.351 Hemiplegia and hemiparesis following cerebral infarction affecting right dominant side; R53.1 Weakness; I69.318 Other symptoms and signs involving cognitive functions following cerebral infarction; I10 Essential (primary) hypertension; E11.9 Type 2 diabetes mellitus without complications; G47.33 Obstructive sleep apnea (adult) (pediatric); E78.5 Hyperlipidemia, unspecified; Z74.09 Other reduced mobility; Z74.1 Need for assistance with personal care; Z79.01 Long term (current) use of anticoagulants; Z79.4 Long term (current) use of insulin; Z79.84 Long term (current) use of oral hypoglycemic drugs; Z79.899 Other long term (current) drug therapy; Z88.6 Allergy status to analgesic agent; Z91.030 Bee allergy status; Z87.891 Personal history of nicotine dependence

== ENCOUNTER → 2023-09-09 | Outpatient (CLI) | payer OTHER ==
[~2023-09-09] MED LIST changes: +AMLO1TAB24 PO; +GLIP5TAB17 PO; -GLIP5TAB8 PO; +LEXA5TAB13 PO; +LOSA-527 PO
[2023-09-09 08:07] LABS: CREATININE, URINE 89.2 MG/DL; PSA SCREENING 0.25 NG/ML (< 4.00)
[2023-09-09 08:08] LABS: ALKALINE PHOSPHATASE 92 U/L (46-116); ALT/SGPT 27 U/L (7.0-40); AST/SGOT 15 U/L (<34); BILIRUBIN,TOTAL 0.5 MG/DL (0.3-1.2); BLOOD UREA NITROGEN 16 MG/DL (9-23); CALCIUM LEVEL 9.1 MG/DL (8.5-10.1); CARBON DIOXIDE LEVEL 30 MMOL/L (20-31); CHLORIDE LEVEL 107 MMOL/L (98-107); CHOLESTEROL LEVEL 141 MG/DL (<200); CHOLESTEROL RISK RATIO 3.67 (<5); CREATININE FOR GFR 0.87 MG/DL (0.70-1.30); GLOMERULAR FILTRATION RATE > 60.0 (>56); GLUCOSE, FASTING 160 MG/DL (60-100); HDL CHOLESTEROL 38.4 MG/DL (>40); LDL CHOLESTEROL 84.2 MG/DL (<100); MAU/CREAT RATIO 7.8 MCG/MG (0.0-30.0); NON-HDL-C 102.6 MG/DL; POTASSIUM SERUM 4.9 MMOL/L (3.5-5.1); SODIUM LEVEL 141 MMOL/L (136-145); TOTAL PROTEIN 7.4 G/DL (5.7-8.2); TRIGLYCERIDES LEVEL 92 MG/DL (<150)
[2023-09-09 08:23] LABS: HEMOGLOBIN A1c 7.2 % (4.0-6.0)
[2023-09-09 08:43] LABS: HEPATITIS C VIRUS ABY INDEX < 0.02 INDEX (<0.8)
== END ==
LOC: M LAB 06:59
PROVIDERS: ATTEND Family Medicine
DX: E78.5 Hyperlipidemia, unspecified (principal); Z12.5 Encounter for screening for malignant neoplasm of prostate; E11.9 Type 2 diabetes mellitus without complications; I10 Essential (primary) hypertension; R79.89 Other specified abnormal findings of blood chemistry; Z11.9 Encounter for screening for infectious and parasitic diseases, unspecified
CPT/HCPCS: 36415; 80053; 80061; 82043; 83036; 86803; G0103

== ENCOUNTER → 2024-02-02 | Day surgery (SDC) | payer OTHER ==
[~2024-02-02] VITALS: Ht 175.3 cm; Wt 78.9 kg
[~2024-02-02] MED LIST changes: +ATOR40TA75 PO; +CLOP75TA99 PO; +JARD1TAB3 PO; +LEXA1TAB PO; +LOSA100T46 PO; +NORV5TAB PO; +SEMA1PEN2; +SERT50TA29 PO
[2024-02-02] MEDS: NS 1,000 ML IV ONE (09:43)
== END | disposition home or self-care (01) ==
LOC: M OPP 09:14
PROVIDERS: ATTEND Internal Medicine Gastroenterology
DX: Z12.11 Encounter for screening for malignant neoplasm of colon (principal); R10.13 Epigastric pain; Z53.8 Procedure and treatment not carried out for other reasons

== ENCOUNTER → 2024-03-03 | Outpatient (CLI) | payer OTHER ==
[2024-03-03 07:44] LABS: BASO # 0.1 10^3/uL (0.0-0.2); BASO % 0.8 % (0.0-1.0); EOS # 0.3 10^3/uL (0.0-0.5); EOS % 4.8 % (0.0-3.0); HEMATOCRIT 47.3 % (42.0-52.0); HEMOGLOBIN 16.3 g/dl (13.5-17.5); LYMPH # 2.1 10^3/uL (1.5-5.0); LYMPH % 33.5 % (24.0-44.0); MEAN CORPUSCULAR HEMOGLOBIN 31.2 pg (27.0-33.0); MEAN CORPUSCULAR HGB CONC 34.5 g/dl (32.0-36.5); MEAN CORPUSCULAR VOLUME 90.6 fl (80.0-96.0); MONO # 0.5 10^3/uL (0.0-0.8); MONO % 8.1 % (2.0-8.0); NEUTROPHILS # 3.3 10^3/uL (1.5-8.5); NEUTROPHILS % 52.6 % (36.0-66.0); PLATELET COUNT, AUTOMATED 247 10^3/uL (150-450); RED BLOOD COUNT 5.22 10^6/uL (4.30-6.10); WHITE BLOOD COUNT 6.3 10^3/uL (4.0-10.0)
[2024-03-03 08:00] LABS: BLOOD UREA NITROGEN 16 MG/DL (9-23); CALCIUM LEVEL 8.9 MG/DL (8.5-10.1); CARBON DIOXIDE LEVEL 27 MMOL/L (20-31); CHLORIDE LEVEL 106 MMOL/L (98-107); CREATININE FOR GFR 1.03 MG/DL (0.70-1.30); GLOMERULAR FILTRATION RATE > 60.0 (>56); GLUCOSE, FASTING 131 MG/DL (60-100); POTASSIUM SERUM 4.6 MMOL/L (3.5-5.1); SODIUM LEVEL 138 MMOL/L (136-145)
== END ==
LOC: M LAB 07:11
PROVIDERS: ATTEND Internal Medicine Clinical Cardiac Electrophysiology
DX: I10 Essential (primary) hypertension (principal); R00.2 Palpitations; Z13.6 Encounter for screening for cardiovascular disorders